=== PATIENT | male | born 1990 | race Caucasian/White ===

== ENCOUNTER 2021-10-12 16:24 | Emergency (ER) | payer SELFPAY ==
[2021-10-12 16:30] VITALS: BP 139/89; PULSE 63; RESP 20; TEMP 37.2; O2SAT 98
--- NOTE | 2021-10-12 17:04 | ED.EAR ---
HPI - Ear Problem General Chief complaint: Ear Stated complaint: Ear pain Time Seen by Provider: 10/12/21 16:40 Source: patient Mode of arrival: ambulatory Limitations: no limitations History of Present Illness HPI Narrative: Mr. Wood is a 31-year-old male patient presenting to the clinic today with complaints of left ear pain x2 3 days. He reports that he has been applying his ciprofloxacin drops in his ears. He reports that his ears felt clogged and are painful. He denies any fever or chills. Related Data Allergies Allergy/AdvReac Type Severity Reaction Status Date / Time No Known Allergies Allergy Verified 10/12/21 16:44 Review of Systems Review of Systems: Pertinent positives per HPI. Patient denies any fever, chills, rash, headache, visual changes, dizziness, cough, runny nose, sore throat, shortness of breath, chest pain, palpitations, nausea, vomiting, diarrhea, constipation, abdominal pain, or any urinary issues. PMFSH Comments At the time of my signature, I reviewed and agree with the nursing past medical, surgical, social, and family history. There is no relevant family history pertinent to the patient complaint. Exam Narrative: General: Well-developed, well nourished, in no apparent distress Head: Normocephalic, atraumatic Eyes: Pupils equally round and reactive to light bilaterally, EOM intact, sclera and conjunctive clear, no discharge, lids normal Ears: Right TMs intact and clear, left TM obscured by wax, left ear canal impacted with cerumen, right ear canals ceruminous, no drainage, grossly hearing normal. Nose: Nares patent, no discharge, no inflammation, no sinus tenderness. Mouth: Oropharynx without lesions or masses, good dentition, MMM. Neck: Supple, trachea midline, no enlargement of anterior or posterior cervical nodes, no thyroid masses or goiter palpable. Cardio: Regular rate and rhythm, s1 and s2 normal, no murmur appreciated. Resp: Clear to auscultation bilaterally anteriorly and posteriorly, no rhonchi, rales, wheezing or rubs Course Course Emergency Course: Portions of this record may have been created with voice recognition software. Level of Care: Express Care Visit Vital Signs Vital signs: Vital Signs Temperature 37.2 C 10/12/21 16:30 Pulse Rate 63 10/12/21 16:30 Respiratory Rate 20 10/12/21 16:30 Blood Pressure 139/89 10/12/21 16:30 Pulse Oximetry 98 10/12/21 16:30 Oxygen Delivery Room Air 10/12/21 16:30 Temperature 37.2 C 10/12/21 16:30 Pulse Rate 63 10/12/21 16:30 Respiratory Rate 20 10/12/21 16:30 Blood Pressure 139/89 10/12/21 16:30 Pulse Oximetry 98 10/12/21 16:30 Oxygen Delivery Room Air 10/12/21 16:30 Vital signs reviewed Procedures Ear Wax Removal Left Ear: Ear Wax Removal Date: 10/12/21 Results: Re-examined: some cerumen remains TM Examination: other (Unable to visualize TM, patient unable to tolerate procedure) Ear Canal Exam: other (Swollen, irritated, red) Patient Tolerated Procedure: other (Procedure was very painful) Complications: pain Technique: ear canal irrigated Additional Comments: Verbal consent obtained for ear lavage. Some of the cerumen was successfully removed however there is an adequate amount that is retained and the amount that is retained is still covering the visualization of the tympanic membrane. Patient is unable to tolerate continuation of ear irrigation to remove excessive cerumen at this time. I will go ahead and order him some ofloxacin drops for the patient. Medical Decision Making MDM Narrative Medical decision making narrative: At the time of visit patient is resting comfortably on the exam table. Partial ear irrigation was performed but patient was no longer able to tolerate the procedure. Some cerumen was removed. Ear canal was red swollen and tender. I will go ahead and order a prescription for some ofloxacin eardrops and
== END 2021-10-12 17:21 | disposition home or self-care (01) ==
PROVIDERS: Emergency Provider Nurse Practitioner Family
DX: H60.92 Unspecified otitis externa, left ear (principal); H61.22 Impacted cerumen, left ear
CPT/HCPCS: 69209; 99203; G0463